=== PATIENT | male | born 1975 | race Caucasian/White ===

== ENCOUNTER 2017-06-10 15:00 | Emergency (ER) | payer OTHER ==
[2017-06-10 15:07] VITALS: BP 143/100; PULSE 98; RESP 18; TEMP 97.5
[2017-06-10] MEDS ORDERED: KETOROLAC 30 MG/ML 1 ML VIAL IM STA (15:16)
--- NOTE | 2017-06-10 15:21 | ED ---
General Adult HPI - General Chief complaint: Extremity Injury, Lower Stated complaint: Knee injury Time Seen by Provider: 06/10/17 15:10 Source: patient, RN notes reviewed Mode of arrival: ambulatory Limitations: no limitations - History of Present Illness Initial comments: 41-year-old male presents for evaluation of right knee pain. 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 Denies any other injury. The time of injury states his knees seem to twist and he heard several pops. He has been walking on this knee with significant pain and swelling over the past 6 hours. Any other injury, no chest pain or abdominal pain. No head or neck trauma. - Related Data Home Medications Medication Instructions Recorded Confirmed Ibuprofen [Motrin Ib] 400 mg PO Q6HR PRN 06/10/17 06/10/17 Previous Rx's Medication Instructions Recorded HYDROcodone/APAP 5-325MG [[place] 1 tab PO Q6HR PRN #12 tab 06/10/17 5-325] Ibuprofen [Motrin] 600 mg PO Q8HR PRN #24 tab 06/10/17 Allergies Allergy/AdvReac Type Severity Reaction Status Date / Time No Known Allergies Allergy Verified 06/10/17 15:12 Review of Systems ROS Statement: Those systems with pertinent positive or pertinent negative responses have been documented in the HPI. ROS Other: All systems not noted in ROS Statement are negative. Past Medical History Past Medical History: No Reported History History of Any Multi-Drug Resistant Organisms: None Reported Past Surgical History: No Surgical Hx Reported Past Psychological History: No Psychological Hx Reported Smoking Status: Never smoker Past Alcohol Use History: None Reported Past Drug Use History: None Reported General Exam Limitations: no limitations General appearance: alert, in no apparent distress Head exam: Present: atraumatic, normocephalic Eye exam: Present: normal appearance, PERRL, EOMI ENT exam: Present: normal exam Neck exam: Present: normal inspection. Absent: tenderness, meningismus Respiratory exam: Present: normal lung sounds bilaterally. Absent: respiratory distress, wheezes Cardiovascular Exam: Present: regular rate, normal rhythm GI/Abdominal exam: Present: soft. Absent: distended, tenderness Extremities exam: Present: joint swelling, other (Right lower extremity: DP and PT pulses intact, there is swelling in the right knee, with joint effusion. Knee overall appears stable. No calf swelling or tenderness.) Back exam: Present: normal inspection, full ROM. Absent: tenderness Neurological exam: Present: alert, oriented X3, CN II-XII intact. Absent: motor sensory deficit Psychiatric exam: Present: normal affect, normal mood Skin exam: Present: warm, dry, intact. Absent: cyanosis, diaphoretic Course Vital Signs 06/10/17 15:04 Temperature 97.5 F L Pulse Rate 98 Respiratory 18 Rate Blood Pressure 143/100 O2 Sat by Pulse 97 Oximetry Medical Decision Making - Medical Decision Making 41-year-old male with right knee injury and concern for ligamentous injury. On exam patient has significant joint swelling and effusion. X-rays obtained, this does show ossific density seen on the lateral projection adjacent to Hoffa' s fat pad concern for ACL rupture as well as suprapatellar joint effusion. Patient placed in knee immobilizer, given crutches, given orthopedic follow-up for evaluation and MRI. Patient will be nonweightbearing on right lower extremity until cleared by orthopedic surgery. Disposition Clinical Impression: Knee effusion, right, Knee strain, ACL (anterior cruciate ligament) rupture Disposition: HOME SELF-CARE Condition: Good Instructions: Knee Sprain (ED), Swollen Knee Joint (ED), ACL Injury (ED) Prescriptions: HYDROcodone/APAP 5-325MG [[place] 5-325] 1 tab PO Q6HR PRN #12 tab PRN Reason: Pain Ibuprofen [Motrin] 600 mg PO Q8HR PRN #24 tab PRN Reason: Pain Referrals: None,Stated [Primary Care Provider] - 1-2 days Bobo Bauer MD [Medical Doctor] - 1-2 days Time of Disposition: 15:40
--- NOTE | 2017-06-10 15:28 | XR ---
EXAMINATION TYPE: XR knee complete RT DATE OF EXAM: 06/10/2017 CLINICAL HISTORY: pain TECHNIQUE: Three views of the right knee are obtained. COMPARISON: None. FINDINGS: Curvilinear ossific density seen on the lateral projection on the adjacent to Hoffa's fat p ad. Avulsion fracture is not excluded. Correlate for possible ACL rupture. Small suprapatellar joint effusion noted. The tri-compartment joint spaces appear within normal limits. IMPRESSION: Curvilinear ossific density seen on the lateral projection on the adjacent to Hoffa's fa t pad. Avulsion fracture is not excluded. Correlate for possible ACL rupture. Small suprapatellar angélica nt effusion noted.
== END 2017-06-10 15:54 | disposition home or self-care (01) ==
LOC: EC 15:00
DX: S83.511A Sprain of anterior cruciate ligament of right knee, initial encounter (principal); S86.811A Strain of other muscle(s) and tendon(s) at lower leg level, right leg, initial encounter; M25.461 Effusion, right knee; Z53.29 Procedure and treatment not carried out because of patient's decision for other reasons; W01.0XXA Fall on same level from slipping, tripping and stumbling without subsequent striking against object, initial encounter; Y99.0 Civilian activity done for income or pay
CPT/HCPCS: 73562; 99283; L1830

== ENCOUNTER 2017-07-18 08:43 | Emergency (ER) | payer BC ==
[2017-07-18 08:49] VITALS: RESP 20; TEMP 98.3
[2017-07-18] MEDS ORDERED: SODIUM CHLORIDE 0.9% 1,000 ML IV ONE (09:05)
[2017-07-18] MEDS ORDERED: METOCLOPRAMIDE 5 MG/ML 2 ML VIAL IVP STA (09:05)
[2017-07-18] MEDS ORDERED: diphenhydrAMINE 50 MG/ML 1 ML VIAL IVP STA (09:05)
[2017-07-18] MEDS ORDERED: PANTOPRAZOLE 40 MG/10 ML VIAL IVP STA (09:05)
[2017-07-18 09:47] LABS: Appearance,Urine Clear (Clear); Basophils % (A) 0 %; Bilirubin,Urine Negative (Negative); Blood,Urine Negative (Negative); Color,Urine Yellow; Eosinophils # (A) 0.2 k/uL (0-0.7); Eosinophils % (A) 3 %; Glucose,Urine (UA) Negative (Negative); HCT 43.9 % (39.0-53.0); HGB 15.1 gm/dL (13.0-17.5); Ketones,Urine Negative (Negative); Leukocyte Esterase,Urine Negative (Negative); Lymphocytes # (A) 1.7 k/uL (1.0-4.8); Lymphocytes % (A) 18 %; MCH 29.5 pg (25.0-35.0); MCHC 34.4 g/dL (31.0-37.0); MCV 85.6 fL (80.0-100.0); Mean Platelet Volume 7.7; Monocytes # (A) 0.4 k/uL (0-1.0); Monocytes % (A) 4 %; Neutrophils # (A) 6.9 k/uL (1.3-7.7); Neutrophils % (A) 74 %; Nitrite,Urine Negative (Negative); Platelet Count 300 k/uL (150-450); Protein,Urine Negative (Negative); RBC 5.13 m/uL (4.30-5.90); RDW 12.7 % (11.5-15.5); Specific Gravity,Urine 1.018 (1.001-1.035); Urobilinogen,Urine <2.0 mg/dL (<2.0); WBC 9.3 k/uL (3.8-10.6)
[2017-07-18 09:56] LABS: Partial Thromboplastin Time 25.3 sec (22.0-30.0); Prothrombin Time 9.9 sec (9.0-12.0)
[2017-07-18 10:02] LABS: Albumin 4.5 g/dL (3.5-5.0); Anion Gap 16 mmol/L; Calcium 10.3 mg/dL (8.4-10.2); Carbon Dioxide 21 mmol/L (22-30); Chloride 106 mmol/L (98-107); Glucose 201 mg/dL (74-99); Sodium 143 mmol/L (137-145); Total Bilirubin 0.6 mg/dL (0.2-1.3); Total Protein 7.7 g/dL (6.3-8.2)
[2017-07-18 10:15] LABS: ALT 83 U/L (21-72); AST 47 U/L (17-59); Alkaline Phosphatase 113 U/L (38-126); Blood Urea Nitrogen 15 mg/dL (9-20)
--- NOTE | 2017-07-18 10:18 | CT ---
EXAMINATION TYPE: CT brain wo con DATE OF EXAM: 07/18/2017 COMPARISON: NONE HISTORY: Patient complains of headache today. CT DLP: 1121 mGycm. Automated Exposure Control for Dose Reduction was Utilized. TECHNIQUE: CT scan of the head is performed without contrast. FINDINGS: There is no acute intracranial hemorrhage, mass effect, or midline shift identified. The ventricles and sulci are within normal limits in size. There is prominence of the vertebral basilar artery. Could not exclude an aneurysm of the basilar art lily. Additionally there is an area of low attenuation within the white matter of the left occipital l obe near the occipital parietal junction. This is a nonspecific finding. IMPRESSION: 1. No acute intracranial hemorrhage or mass effect 2. Ectasia of the vertebrobasilar system aneurysm is not excluded recommend stat MRA/MRI. 3. Area of low attenuation involving the occipital white matter is nonspecific left. Could be seen wi th previous ischemia or demyelinating process. Recommend MRI of the brain.
[2017-07-18] MEDS ORDERED: RX INFO: IV CONTRAST WAS GIVEN 1 EACH MISC MISCELLANE PRN (10:26)
--- NOTE | 2017-07-18 10:58 | ED ---
Headache HPI - General Chief Complaint: Headache Stated Complaint: blood in urine/stool, headache Time Seen by Provider: 07/18/17 08:58 Source: patient, RN notes reviewed Mode of arrival: ambulatory Limitations: no limitations - History of Present Illness Initial Comments: This a 41-year-old male presents emergency Department chief complaint of headache. Patient states that he had a headache that started this morning. Patient's ever had a headache like this in the past. He states it's right- sided headache. He does admit to some nausea no vomiting no diarrhea no constipation. Patient is has no focal weakness no photosensitivity. Patient states that he took some Tylenol prior arrival for his headache. He states that his been taking ibuprofen [id number] lately because he had right knee surgery. Patient states that he did have a bowel movement other day which had blood in it. He states he was not exactly sure was rectal or in the urine. He states he has no dysuria no urinary frequency no abdominal pain. Patient states that he is concerned about the bleeding at this time. He states she's unconcerned about his headache. Patient reports no fever no chills no neck pain or neck stiffness. - Related Data Home Medications Medication Instructions Recorded Confirmed Ibuprofen [Motrin] 800 mg PO Q6H PRN 07/18/17 07/18/17 Previous Rx's Medication Instructions Recorded Butalb/APAP/Caff 50-325-40Mg 1 tab PO Q4H PRN #10 tablet 07/18/17 [Fioricet 50-325-40] Allergies Allergy/AdvReac Type Severity Reaction Status Date / Time No Known Allergies Allergy Verified 07/18/17 09:53 Review of Systems ROS Statement: Those systems with pertinent positive or pertinent negative responses have been documented in the HPI. ROS Other: All systems not noted in ROS Statement are negative. Past Medical History Past Medical History: No Reported History History of Any Multi-Drug Resistant Organisms: None Reported Past Surgical History: Orthopedic Surgery Additional Past Surgical History / Comment(s): right knee surgery Past Psychological History: No Psychological Hx Reported Smoking Status: Never smoker Past Alcohol Use History: None Reported Past Drug Use History: None Reported General Exam Limitations: no limitations General appearance: alert, in no apparent distress Head exam: Present: atraumatic, normocephalic, normal inspection Eye exam: Present: normal appearance, PERRL, EOMI. Absent: scleral icterus, conjunctival injection, periorbital swelling ENT exam: Present: normal exam, normal oropharynx, mucous membranes moist, TM's normal bilaterally Neck exam: Present: normal inspection, full ROM. Absent: tenderness, meningismus, lymphadenopathy Respiratory exam: Present: normal lung sounds bilaterally. Absent: respiratory distress, wheezes, rales, rhonchi, stridor Cardiovascular Exam: Present: regular rate, normal rhythm, normal heart sounds. Absent: systolic murmur, diastolic murmur, rubs, gallop, clicks GI/Abdominal exam: Present: soft, normal bowel sounds. Absent: distended, tenderness, guarding, rebound, rigid Extremities exam: Present: normal inspection, full ROM, normal capillary refill. Absent: tenderness, pedal edema, joint swelling, calf tenderness Neurological exam: Present: alert, oriented X3, CN II-XII intact, reflexes normal, other (Normal finger to nose, normal Romberg). Absent: motor sensory deficit Skin exam: Present: warm, dry, intact, normal color. Absent: rash Course Vital Signs 07/18/17 08:46 Temperature 98.3 F Pulse Rate 104 H Respiratory 20 Rate Blood Pressure 160/100 O2 Sat by Pulse 95 Oximetry - Reevaluation(s) Reevaluation #1: 07/18/17 11:47 Patient was updated on CT results. There is no evidence of aneurysm. He still has a mild headache and will be given Toradol, Norflex at this time. He's had no repeat bleeding. Patient states he has had hemorrhoids in the past most likely related to this. Patient hemoglobin is stable. Medical Decision Making - Medical Decision Making 41-year-old male presented for headache. Patient's having migraine headache. CT showed possible aneurysm though CT does not reveal any aneurysm. Patient is given a headache medications he feels slightly improved at this time he has a normal neuro exam. Patient had rectal bleeding other day but has resolved. Hemoglobin is stable. Patient be discharged is advised follow-up with primary care physician been related to his issues including headaches, bleeding and hyperglycemia. - Lab Data Result diagrams: 07/18/17 09:25 07/18/17 09:25 Lab Results 07/18/17 07/18/17 07/18/17 Range/Units 09:25 09:25 09:25 WBC 9.3 (3.8-10.6) k/uL RBC 5.13 (4.30-5.90) m/uL Hgb 15.1 (13.0-17.5) gm/dL Hct 43.9 (39.0-53.0) % MCV 85.6 (80.0-100.0) fL MCH 29.5 (25.0-35.0) pg MCHC 34.4 (31.0-37.0) g/dL RDW 12.7 (11.5-15.5) % Plt Count 300 (150-450) k/uL Neutrophils % 74 % Lymphocytes % 18 % Monocytes % 4 % Eosinophils % 3 % Basophils % 0 % Neutrophils # 6.9 (1.3-7.7) k/uL Lymphocytes # 1.7 (1.0-4.8) k/uL Monocytes # 0.4 (0-1.0) k/uL Eosinophils # 0.2 (0-0.7) k/uL Basophils # 0.0 (0-0.2) k/uL PT 9.9 (9.0-12.0) sec INR 1.0 (<1.2) APTT 25.3 (22.0-30.0) sec Sodium 143 (137-145) mmol/L Potassium 5.0 (3.5-5.1) mmol/L Chloride 106 (98-107) mmol/L Carbon Dioxide 21 L (22-30) mmol/L Anion Gap 16 mmol/L BUN 15 (9-20) mg/dL Creatinine 0.57 L (0.66-1.25) mg/dL Est GFR (CKD-EPI)AfAm >90 (>60 ml/min/1.73 sqM) Est GFR (CKD-EPI)NonAf >90 (>60 ml/min/1.73 sqM) Glucose 201 H (74-99) mg/dL Calcium 10.3 H (8.4-10.2) mg/dL Total Bilirubin 0.6 (0.2-1.3) mg/dL AST 47 (17-59) U/L ALT 83 H (21-72) U/L Alkaline Phosphatase 113 (38-126) U/L Total Protein 7.7 (6.3-8.2) g/dL Albumin 4.5 (3.5-5.0) g/dL Urine Color Urine Appearance (Clear) Urine pH (5.0-8.0) Ur Specific [place] (1.001-1.035) Urine Protein (Negative) Urine Glucose (UA) (Negative) Urine Ketones (Negative) Urine Blood (Negative) Urine Nitrite (Negative) Urine Bilirubin (Negative) Urine Urobilinogen (<2.0) mg/dL Ur Leukocyte Esterase (Negative) 07/18/17 Range/Units 09:25 WBC (3.8-10.6) k/uL RBC (4.30-5.90) m/uL Hgb (13.0-17.5) gm/dL Hct (39.0-53.0) % MCV (80.0-100.0) fL MCH (25.0-35.0) pg MCHC (31.0-37.0) g/dL RDW (11.5-15.5) % Plt Count (150-450) k/uL Neutrophils % % Lymphocytes % % Monocytes % % Eosinophils % % Basophils % % Neutrophils # (1.3-7.7) k/uL Lymphocytes # (1.0-4.8) k/uL Monocytes # (0-1.0) k/uL Eosinophils # (0-0.7) k/uL Basophils # (0-0.2) k/uL PT (9.0-12.0) sec INR (<1.2) APTT (22.0-30.0) sec Sodium (137-145) mmol/L Potassium (3.5-5.1) mmol/L Chloride (98-107) mmol/L Carbon Dioxide (22-30) mmol/L Anion Gap mmol/L BUN (9-20) mg/dL Creatinine (0.66-1.25) mg/dL Est GFR (CKD-EPI)AfAm (>60 ml/min/1.73 sqM) Est GFR (CKD-EPI)NonAf (>60 ml/min/1.73 sqM) Glucose (74-99) mg/dL Calcium (8.4-10.2) mg/dL Total Bilirubin (0.2-1.3) mg/dL AST (17-59) U/L ALT (21-72) U/L Alkaline Phosphatase (38-126) U/L Total Protein (6.3-8.2) g/dL Albumin (3.5-5.0) g/dL Urine Color Yellow Urine Appearance Clear (Clear) Urine pH 5.0 (5.0-8.0) Ur Specific [place] 1.018 (1.001-1.035) Urine Protein Negative (Negative) Urine Glucose (UA) Negative (Negative) Urine Ketones Negative (Negative) Urine Blood Negative (Negative) Urine Nitrite Negative (Negative) Urine Bilirubin Negative (Negative) Urine Urobilinogen <2.0 (<2.0) mg/dL Ur Leukocyte Esterase Negative (Negative) Disposition Clinical Impression: Hyperglycemia, Migraine, Hypertension Disposition: HOME SELF-CARE Condition: Stable Instructions: Acute Headache (ED) Additional Instructions: Please return to the Emergency Department if symptoms worsen or any other concerns. Prescriptions: Butalb/APAP/Caff 50-325-40Mg [Fioricet 50-325-40] 1 tab PO Q4H PRN #10 tablet PRN Reason: Headache Is patient prescribed a controlled substance at d/c from ED?: No Referrals: Leona Holbrook MD [STAFF PHYSICIAN] - 1-2 days Time of Disposition: 11:49
--- NOTE | 2017-07-18 11:33 | CT ---
EXAMINATION TYPE: CT angio head neck DATE OF EXAM: 07/18/2017 HISTORY: Patient complains of headache. Abnormal prior brain CT. COMPARISON: CT brain of the same date CT DLP: 761.5 mGycm. Automated Exposure Control for Dose Reduction was Utilized. TECHNIQUE: CTA scan of the neck is performed with IV Contrast, patient injected with 65 mL of Isovue 370, axial images are obtained, coronal and sagittal reformatted images are reviewed. Three-D recons tructed images are created on an independent workstation and reviewed. FINDINGS: Carotid/Vascular Structures: There is a conventional branch pattern of the aortic arch. Great vessels are unremarkable. The common carotid arteries are patent as are the carotid bulbs and internal carot id arteries. No hemodynamically significant stenosis. The left vertebral artery is dominant. Vertebra l arteries are patent. No dissection is seen. Intracranial vasculature is also patent and [place] is intact although the right posterior communicating artery is diminutive. No evidence of intra cranial aneurysm or arterial venous malformation. Incidentally the posterior cerebral artery has an a nomalous origin from the left MCA. Other: Paranasal sinuses are well aerated. Osseous structures are intact. Scattered areas of atelecta sis are seen within the lung apices and there is also respiratory artifact. Subcentimeter left thyroi d gland nodule is noted. No gross evidence of adenopathy within the head or neck. Visualized portions of the brain are better described on the CT brain dictation of the same date. IMPRESSION: 1. No evidence of hemodynamically significant stenosis in the arterial vasculature of the head or nec k, no dissection, and no aneurysmal outpouching. 2. Incidentally noted subcentimeter left thyroid nodule.
[2017-07-18] MEDS ORDERED: ORPHENADRINE 30 MG/ML 2 ML VIAL IVP STA (11:42)
[2017-07-18] MEDS ORDERED: KETOROLAC 30 MG/ML 1 ML VIAL IVP STA (11:42)
[2017-07-18 11:54] VITALS: BP 128/87; PULSE 94
== END 2017-07-18 12:29 | disposition home or self-care (01) ==
LOC: EC 08:43
DX: G43.909 Migraine, unspecified, not intractable, without status migrainosus (principal); I10 Essential (primary) hypertension; R73.9 Hyperglycemia, unspecified
CPT/HCPCS: 99284 ×2; 96374 ×2; 96375 ×5; 96361 ×2; 36415; 80053; 85025; 85610; 85730; 81003; 70496; 70450; 70498; J1200; J2360; J2765; J1885; C9113; Q9967

== ENCOUNTER 2020-07-21 10:57 | Emergency (ER) | payer BC ==
[2020-07-21 11:06] VITALS: RESP 18
[2020-07-21] MEDS ORDERED: SODIUM CHLORIDE 0.9% 1,000 ML IV STA (11:36)
[2020-07-21 12:01] LABS: Basophils % (A) 1 %; Eosinophils # (A) 0.1 k/uL (0-0.7); Eosinophils % (A) 2 %; HCT 42.3 % (39.0-53.0); HGB 14.9 gm/dL (13.0-17.5); Lymphocytes % (A) 20 %; MCH 29.8 pg (25.0-35.0); MCHC 35.2 g/dL (31.0-37.0); MCV 84.7 fL (80.0-100.0); Mean Platelet Volume 7.6; Monocytes # (A) 0.3 k/uL (0-1.0); Monocytes % (A) 6 %; Neutrophils # (A) 3.4 k/uL (1.3-7.7); Neutrophils % (A) 70 %; Platelet Count 217 k/uL (150-450); RBC 4.99 m/uL (4.30-5.90); RDW 12.4 % (11.5-15.5); WBC 4.9 k/uL (3.8-10.6)
--- NOTE | 2020-07-21 12:03 | ED ---
General Adult HPI - General Chief complaint: Upper Respiratory Infection Stated complaint: Covid+, SOB Time Seen by Provider: 07/21/20 11:14 Source: patient Mode of arrival: ambulatory Limitations: no limitations - History of Present Illness Initial comments: 44-year-old male presents to emergency Department with a chief complaint of shortness of breath. States he was diagnosed with Covid 7 days ago and has been experiencing symptoms since. He reports increased exertional dyspnea with occasional midsternal chest tightness/pain. Patient reports generalized fatigue and myalgias. He also reports an unproductive cough with occasional rhinorrhea and a sore throat but no otalgia. Denies any nausea or vomiting or diarrhea. He denies any abdominal pain. Denies taking medication to alleviate the symptoms. Not a smoker. - Related Data Home Medications Medication Instructions Recorded Confirmed No Known Home Medications 07/21/20 07/21/20 Allergies Allergy/AdvReac Type Severity Reaction Status Date / Time No Known Allergies Allergy Verified 07/21/20 12:12 Review of Systems ROS Statement: Those systems with pertinent positive or pertinent negative responses have been documented in the HPI. ROS Other: All systems not noted in ROS Statement are negative. Past Medical History Past Medical History: No Reported History History of Any Multi-Drug Resistant Organisms: None Reported Past Surgical History: Orthopedic Surgery Additional Past Surgical History / Comment(s): right knee surgery Past Psychological History: No Psychological Hx Reported Smoking Status: Never smoker Past Alcohol Use History: None Reported Past Drug Use History: None Reported General Exam Limitations: no limitations General appearance: alert, in no apparent distress Head exam: Present: atraumatic, normocephalic, normal inspection Eye exam: Present: normal appearance, PERRL, EOMI Pupils: Present: normal accommodation ENT exam: Present: normal exam, normal oropharynx, mucous membranes moist, TM's normal bilaterally, normal external ear exam Neck exam: Present: normal inspection, full ROM. Absent: tenderness, lymph adenopathy Respiratory exam: Present: normal lung sounds bilaterally. Absent: respiratory distress, wheezes, rales, rhonchi, stridor, chest wall tenderness, accessory muscle use Cardiovascular Exam: Present: regular rate, normal rhythm, normal heart sounds Extremities exam: Present: normal inspection, full ROM, normal capillary refill. Absent: tenderness, pedal edema, joint swelling Back exam: Present: normal inspection, full ROM, tenderness, paraspinal tenderness (Mild lumbosacral paraspinal tenderness). Absent: CVA tenderness (R), CVA tenderness (L) Neurological exam: Present: alert, oriented X3 Psychiatric exam: Present: normal affect, normal mood Skin exam: Present: warm, dry, intact, normal color Course Vital Signs 07/21/20 07/21/20 07/21/20 11:02 11:51 12:05 Temperature 97.9 F Pulse Rate 99 90 100 Respiratory 18 18 18 Rate Blood Pressure 140/94 119/77 122/85 O2 Sat by Pulse 96 96 95 Oximetry 07/21/20 07/21/20 07/21/20 12:44 13:37 14:28 Temperature 99.1 F 99.2 F Pulse Rate 94 96 Respiratory 18 18 18 Rate Blood Pressure 123/79 122/82 O2 Sat by Pulse 96 94 L Oximetry 07/21/20 07/21/20 07/21/20 14:53 15:24 15:28 Temperature 98.6 F 98.6 F Pulse Rate 99 99 Respiratory 18 18 Rate Blood Pressure 118/87 118/87 O2 Sat by Pulse 95 95 Oximetry EKG Findings - EKG Comments: EKG Findings:: Sinus rhythm. Ventricular rate 90, TN 200, QRS 116, QTc 469. Medical Decision Making - Medical Decision Making 44-year-old male presents to emergency Department with a chief complaint of shortness of breath. On physical examination, patient appears to be slightly short of breath but he is not in significant respiratory distress. Vital signs are within normal limits. Patient was given IV fluids and a Tylenol in the ED. Coags within normal limits. Negative d-dimer. Chest x-ray reveals bilateral patchy infiltrates likely suggesting Covid pneumonia. Patient fits criteria for monoclonal antibody. He was given the effusion observed for one hour afterwards . Patient reports improvement in symptoms and feels comfortable going home. Covid protocol discussed. Return parameters discussed the patient is an attending ago. Case discussed with Dr. Louise. - Lab Data Result diagrams: 07/21/20 11:42 07/21/20 11:42 Lab Results 07/21/20 07/21/20 07/21/20 Range/Units 11:42 11:42 11:42 WBC 4.9 (3.8-10.6) k/uL RBC 4.99 (4.30-5.90) m/uL Hgb 14.9 (13.0-17.5) gm/dL Hct 42.3 (39.0-53.0) % MCV 84.7 (80.0-100.0) fL MCH 29.8 (25.0-35.0) pg MCHC 35.2 (31.0-37.0) g/dL RDW 12.4 (11.5-15.5) % Plt Count 217 (150-450) k/uL MPV 7.6 Neutrophils % 70 % Lymphocytes % 20 % Monocytes % 6 % Eosinophils % 2 % Basophils % 1 % Neutrophils # 3.4 (1.3-7.7) k/uL Lymphocytes # 1.0 (1.0-4.8) k/uL Monocytes # 0.3 (0-1.0) k/uL Eosinophils # 0.1 (0-0.7) k/uL Basophils # 0.0 (0-0.2) k/uL PT 10.8 (9.0-12.0) sec INR 1.0 (<1.2) APTT 24.6 (22.0-30.0) sec D-Dimer 0.54 (<0.60) mg/L FEU Sodium 138 (137-145) mmol/L Potassium 3.5 (3.5-5.1) mmol/L Chloride 102 (98-107) mmol/L Carbon Dioxide 26 (22-30) mmol/L Anion Gap 10 mmol/L BUN 8 L (9-20) mg/dL Creatinine 0.47 L (0.66-1.25) mg/dL Est GFR (CKD-EPI)AfAm >90 (>60 ml/min/1.73 sqM) Est GFR (CKD-EPI)NonAf >90 (>60 ml/min/1.73 sqM) Glucose 251 H (74-99) mg/dL Calcium 9.0 (8.4-10.2) mg/dL Total Bilirubin 1.6 H (0.2-1.3) mg/dL AST 54 (17-59) U/L ALT 59 H (4-49) U/L Alkaline Phosphatase 91 (38-126) U/L Troponin I (0.000-0.034) ng/mL Total Protein 7.1 (6.3-8.2) g/dL Albumin 4.0 (3.5-5.0) g/dL 07/21/20 Range/Units 11:42 WBC (3.8-10.6) k/uL RBC (4.30-5.90) m/uL Hgb (13.0-17.5) gm/dL Hct (39.0-53.0) % MCV (80.0-100.0) fL MCH (25.0-35.0) pg MCHC (31.0-37.0) g/dL RDW (11.5-15.5) % Plt Count (150-450) k/uL MPV Neutrophils % % Lymphocytes % % Monocytes % % Eosinophils % % Basophils % % Neutrophils # (1.3-7.7) k/uL Lymphocytes # (1.0-4.8) k/uL Monocytes # (0-1.0) k/uL Eosinophils # (0-0.7) k/uL Basophils # (0-0.2) k/uL PT (9.0-12.0) sec INR (<1.2) APTT (22.0-30.0) sec D-Dimer (<0.60) mg/L FEU Sodium (137-145) mmol/L Potassium (3.5-5.1) mmol/L Chloride (98-107) mmol/L Carbon Dioxide (22-30) mmol/L Anion Gap mmol/L BUN (9-20) mg/dL Creatinine (0.66-1.25) mg/dL Est GFR (CKD-EPI)AfAm (>60 ml/min/1.73 sqM) Est GFR (CKD-EPI)NonAf (>60 ml/min/1.73 sqM) Glucose (74-99) mg/dL Calcium (8.4-10.2) mg/dL Total Bilirubin (0.2-1.3) mg/dL AST (17-59) U/L ALT (4-49) U/L Alkaline Phosphatase (38-126) U/L Troponin I <0.012 (0.000-0.034) ng/mL Total Protein (6.3-8.2) g/dL Albumin (3.5-5.0) g/dL Disposition Clinical Impression: Pneumonia due to COVID-19 virus Disposition: HOME SELF-CARE Condition: Stable Instructions (If sedation given, give patient instructions): Coronavirus Disease 2019 (COVID-19) Additional Instructions: Please return to the Emergency Department if symptoms worsen or any other concerns. Is patient prescribed a controlled substance at d/c from ED?: No Referrals: None,Stated [Primary Care Provider] - 1-2 days Time of Disposition: 14:05
[2020-07-21 12:13] LABS: ALT 59 U/L (4-49); AST 54 U/L (17-59); African American GFR (CKD) >90 (>60 ml/min/1.73 sqM); Alkaline Phosphatase 91 U/L (38-126); Anion Gap 10 mmol/L; Blood Urea Nitrogen 8 mg/dL (9-20); Carbon Dioxide 26 mmol/L (22-30); Chloride 102 mmol/L (98-107); Glucose 251 mg/dL (74-99); Non-African American GFR(CKD) >90 (>60 ml/min/1.73 sqM); Potassium 3.5 mmol/L (3.5-5.1); Sodium 138 mmol/L (137-145); Total Bilirubin 1.6 mg/dL (0.2-1.3); Total Protein 7.1 g/dL (6.3-8.2)
--- NOTE | 2020-07-21 12:14 | XR ---
EXAMINATION TYPE: XR chest 1V portable DATE OF EXAM: 07/21/2020 COMPARISON: NONE HISTORY: Cough TECHNIQUE: Single frontal view of the chest is obtained. FINDINGS: Patchy bilateral interstitial infiltrates. Heart size prominent. No pleural effusion or pn eumothorax. Osseous structures intact. IMPRESSION: Patchy bilateral infiltrate correlate for pneumonia.
[2020-07-21 12:25] LABS: D-Dimer 0.54 mg/L FEU (<0.60); Partial Thromboplastin Time 24.6 sec (22.0-30.0); Prothrombin Time 10.8 sec (9.0-12.0)
[2020-07-21] MEDS ORDERED: BAMLANIVIMAB (EUA) 700 MG, ETESEVIMAB (EUA) 1,400 MG in SODIUM CHLORIDE 0.9% 50 ML IVPB ONE (13:30)
[2020-07-21] MEDS ORDERED: SODIUM CHLORIDE 0.9% 50 ML IVPB ONE (13:30)
[2020-07-21] MEDS ORDERED: ACETAMINOPHEN TAB 325 MG TAB PO STA (13:51)
[2020-07-21 14:53] VITALS: TEMP 98.6
[2020-07-21 15:24] VITALS: BP 118/87; PULSE 99
== END 2020-07-21 15:29 | disposition home or self-care (01) ==
LOC: EC 10:57
DX: U07.1 COVID-19 (principal); J12.82 Pneumonia due to coronavirus disease 2019
CPT/HCPCS: 36415; 93005; 85379; 80053; 84484; 85025; 85610; 85730; 71045; 99285; 96360; 96361; Q0245

== ENCOUNTER 2023-02-06 23:13 | Emergency (ER) | payer BC, OTHER ==
--- NOTE | 2023-02-07 00:26 | XR ---
EXAM: XR Chest, 2 Views CLINICAL HISTORY: Cough congestion TECHNIQUE: Frontal and lateral views of the chest. COMPARISON: July 21, 2020 FINDINGS: Lungs: Unremarkable. No infiltration, atelectasis or mass density. Pleural space: Unremarkable. No pneumothorax. No pleural fluid. Heart: Unremarkable. No cardiomegaly. Mediastinum: Unremarkable. Normal mediastinal contour. Bones/joints: Unremarkable. No acute abnormalities. IMPRESSION: No acute findings in the chest.
[2023-02-07 00:31] VITALS: RESP 18
--- NOTE | 2023-02-07 00:48 | ED ---
General Adult HPI - General Chief complaint: Upper Respiratory Infection Stated complaint: Cough,Congestion Source: patient Mode of arrival: ambulatory Limitations: no limitations - History of Present Illness Initial comments: 47-year-old male presenting to the ED with a chief complaint of upper respiratory symptoms. Patient states for the past 3 weeks has had upper respiratory symptoms. Since onset, patient states symptoms continuous prompting presentation to the ED For further evaluation. States he is having cough, fatigue, chills, ear pain, headache, sore throat. States over the past few days he is now starting to have pain when he coughs. Patient at rest otherwise denies chest pain. No shortness of breath. No other complaints. - Related Data Previous Rx's Medication Instructions Recorded Amoxic-Pot Clav 875-125Mg 1 tab PO Q12HR 7 Days #14 tab 02/07/23 [Augmentin 875-125] Allergies Allergy/AdvReac Type Severity Reaction Status Date / Time No Known Allergies Allergy Verified 02/06/23 23:57 Review of Systems ROS Statement: Those systems with pertinent positive or pertinent negative responses have been documented in the HPI. ROS Other: All systems not noted in ROS Statement are negative. Past Medical History Past Medical History: No Reported History History of Any Multi-Drug Resistant Organisms: None Reported Past Surgical History: Orthopedic Surgery Additional Past Surgical History / Comment(s): right knee surgery Past Psychological History: No Psychological Hx Reported Smoking Status: Never smoker Past Alcohol Use History: None Reported Past Drug Use History: None Reported General Exam Limitations: no limitations General appearance: alert Eye exam: Present: normal appearance ENT exam: Present: mucous membranes moist, normal external ear exam, other (Right maxillary sinus TTP) Respiratory exam: Present: normal lung sounds bilaterally Cardiovascular Exam: Present: regular rate GI/Abdominal exam: Present: soft Extremities exam: Present: normal inspection Back exam: Present: normal inspection Neurological exam: Present: alert Skin exam: Present: warm, dry Course Vital Signs 02/06/23 23:57 Temperature 98.2 F Pulse Rate 96 Respiratory 18 Rate Blood Pressure 178/99 O2 Sat by Pulse 96 Oximetry Medical Decision Making - Medical Decision Making Was pt. sent in by a medical professional or institution (, PA, MANAGEMENT TRAINEE MARKETING, urgent care, hospital, or group home...) When possible be specific @ -No Did you speak to anyone other than the patient for history (EMS, parent, family, police, friend...)? What history was obtained from this source @ -No Did you review nursing and triage notes (agree or disagree)? Why? @ -I reviewed and agree with nursing and triage notes Were old charts reviewed (outside hosp., previous admission, EMS record, old EKG, old radiological studies, urgent care reports/EKG's, group home records)? Report findings @ -No old charts were reviewed Differential Diagnosis (chest pain, altered mental status, abdominal pain women, abdominal pain men, vaginal bleeding, weakness, fever, dyspnea, syncope, headache, dizziness, GI bleed, back pain, seizure, CVA, palpatations, mental health, musculoskeletal)? @ -Pneumonia, upper respiratory infection, sinusitis. This is not meant to be an all-inclusive list. EKG interpreted by me (3pts min.). @ -None X-rays interpreted by me (1pt min.). @ -Chest x-ray interpreted by me showed no evidence of pneumonia or other acute finding. CT interpreted by me (1pt min.). @ -None done U/S interpreted by me (1pt. min.). @ -None done What testing was considered but not performed or refused? (CT, X-rays, U/S, labs)? Why? @ -None What meds were considered but not given or refused? Why? @ -None Did you discuss the management of the patient with other professionals (professionals i.e. , PA, MANAGEMENT TRAINEE MARKETING, lab, RT, psych nurse, health and social care teacher, derrick boat leverman, teacher, consumer loan officer, business case analyst)? Give summary @ -No Was smoking cessation discussed for >3mins.? @ -No Was critical care preformed (if so, how long)? @ -No Were there social determinants of health that impacted care today? How? (Homelessness, low income, unemployed, alcoholism, drug addiction, transportation, low edu. Level, literacy, decrease access to med. care, shelter, rehab)? @ -No Was there de-escalation of care discussed even if they declined (Discuss DNR or withdrawal of care, Hospice)? DNR status @ -No What co-morbidities impacted this encounter? (DM, HTN, Smoking, COPD, CAD, Cancer, CVA, ARF, Chemo, Hep., AIDS, mental health diagnosis, sleep apnea, morbid obesity)? @ -None Was patient admitted / discharged? Hospital course, mention meds given and route, prescriptions, significant lab abnormalities, going to OR and other pertinent info. @ -Discharge 47-year-old male presenting to the ED with upper respiratory symptoms for the past 3 weeks. Symptoms consistent with sinusitis. With symptoms ongoing for greater then 2 weeks patient started on antibiotics. Provided dose of Augmentin here and discharged home with prescription for Augmentin. Discharged home in stable condition. At this time, vital signs stable afebrile. Discussed return precautions patient verbalizes agreement. Undiagnosed new problem with uncertain prognosis? @ -No Drug Therapy requiring intensive monitoring for toxicity (Heparin, Nitro, Insulin, Cardizem)? @ -No Were any procedures done? @ -No Diagnosis/symptom? @ -Sinusitis Acute, or Chronic, or Acute on Chronic? @ -Acute Uncomplicated (without systemic symptoms) or Complicated (systemic symptoms)? @ -Uncomplicated Side effects of treatment? @ -No Exacerbation, Progression, or Severe Exacerbation? @ -No Poses a threat to life or bodily function? How? (Chest pain, [place], [place], pneumonia, PE, COPD, DKA, ARF, appy, cholecystitis, CVA, Diverticulitis, Homicidal, Suicidal, threat to staff... and all critical care pts) @ -No - Lab Data Lab Results 02/07/23 Range/Units 00:00 Influenza Type A (PCR) Not Detected (Not Detectd) Influenza Type B (PCR) Not Detected (Not Detectd) RSV (PCR) Not Detected (Not Detectd) SARS-CoV-2 (PCR) Not Detected (Not Detectd) Disposition Clinical Impression: Sinusitis Disposition: HOME SELF-CARE Condition: Good Instructions (If sedation given, give patient instructions): Sinusitis (ED) Additional Instructions: Please return to the Emergency Department if symptoms worsen or any other concerns. Please follow-up with your primary care provider. Prescriptions: Amoxic-Pot Clav 875-125Mg [Augmentin 875-125] 1 tab PO Q12HR 7 Days #14 tab Is patient prescribed a controlled substance at d/c from ED?: No Referrals: None,Stated [Primary Care Provider] - 1-2 days Time of Disposition: 01:35
[2023-02-07] MEDS ORDERED: AMOXIC-POT CLAV 875-125MG 1 EACH TAB PO STA (01:28)
[2023-02-07 02:03] VITALS: BP 123/76; PULSE 78; TEMP 98.3
== END 2023-02-07 01:47 | disposition home or self-care (01) ==
LOC: EC 23:13
DX: J32.9 Chronic sinusitis, unspecified (principal); Z20.822 Contact with and (suspected) exposure to COVID-19
CPT/HCPCS: 71046; 87636; 99283

== ENCOUNTER 2023-08-07 08:01 | Emergency (ER) | payer OTHER ==
[2023-08-07] MEDS: IBUPROFEN 600 MG TAB PO STA (08:59)
--- NOTE | 2023-08-07 09:36 | ED ---
ENT HPI - General Chief complaint: ENT Stated complaint: ear pain Source: patient Mode of arrival: ambulatory Limitations: no limitations - History of Present Illness Initial comments: 48-year-old man presents emergency department reporting bilateral ear pain. States he has significant nasal congestion, ear pain and sore throat. Symptoms started last night. He states he feels chills but had no recorded fevers. Patient admits to generalized body aches. No sick contacts with similar symptoms. He denies nausea or vomiting. No abdominal pain. No changes in his bowel or bladder habits. Denies cough. He did take a Sudafed at home to help his symptoms just before coming in. No other alleviating, precipitating or modifying factors - Related Data Previous Rx's Medication Instructions Recorded Amoxic-Pot Clav 875-125Mg 1 tab PO Q12HR 7 Days #14 tab 02/07/23 [Augmentin 875-125] Amoxicillin 500 mg PO BID #16 capsule 08/07/23 Allergies Allergy/AdvReac Type Severity Reaction Status Date / Time No Known Allergies Allergy Verified 02/06/23 23:57 Review of Systems ROS Statement: Those systems with pertinent positive or pertinent negative responses have been documented in the HPI. ROS Other: All systems not noted in ROS Statement are negative. Past Medical History Past Medical History: No Reported History History of Any Multi-Drug Resistant Organisms: None Reported Past Surgical History: Orthopedic Surgery Additional Past Surgical History / Comment(s): right knee surgery Past Psychological History: No Psychological Hx Reported Smoking Status: Never smoker Past Alcohol Use History: None Reported Past Drug Use History: None Reported General Exam Limitations: no limitations General appearance: alert, in no apparent distress Head exam: Present: atraumatic, normocephalic, normal inspection Eye exam: Present: normal appearance, PERRL, EOMI. Absent: scleral icterus, conjunctival injection, periorbital swelling ENT exam: Present: mucous membranes moist, other (Tonsils are erythematous with white plaquing. No peritonsillar abscess) Neck exam: Present: normal inspection. Absent: tenderness, meningismus, lymphadenopathy Respiratory exam: Present: normal lung sounds bilaterally. Absent: respiratory distress, wheezes, rales, rhonchi, stridor Cardiovascular Exam: Present: regular rate, normal rhythm, normal heart sounds. Absent: systolic murmur, diastolic murmur, rubs, gallop, clicks GI/Abdominal exam: Present: soft, normal bowel sounds. Absent: distended, tenderness, guarding, rebound, rigid Extremities exam: Present: normal inspection, full ROM, normal capillary refill. Absent: tenderness, pedal edema, joint swelling, calf tenderness Back exam: Present: normal inspection Neurological exam: Present: alert, oriented X3, CN II-XII intact Psychiatric exam: Present: normal affect, normal mood Skin exam: Present: warm, dry, intact, normal color. Absent: rash Course Vital Signs 08/07/23 08/07/23 08/07/23 08:04 08:17 08:30 Temperature 98.2 F 99.1 F Pulse Rate 107 H 105 H 105 H Respiratory 18 14 14 Rate Blood Pressure 175/119 163/112 157/116 O2 Sat by Pulse 96 97 97 Oximetry 08/07/23 08/07/23 08/07/23 09:00 09:25 09:38 Temperature 99.8 F H Pulse Rate 105 H 101 H Respiratory 17 17 Rate Blood Pressure 155/118 163/113 O2 Sat by Pulse 95 95 Oximetry 08/07/23 10:15 Temperature 98.5 F Pulse Rate 98 Respiratory 14 Rate Blood Pressure 157/116 O2 Sat by Pulse 98 Oximetry Medical Decision Making - Medical Decision Making Was pt. sent in by a medical professional or institution (, PA, INDUSTRIAL ORGANIZATIONAL PSYCHOLOGIST, urgent care, hospital, or penitentiary...) When possible be specific @ -No Did you speak to anyone other than the patient for history (EMS, parent, family, police, friend...)? What history was obtained from this source @ -No Did you review nursing and triage notes (agree or disagree)? Why? @ -I reviewed and agree with nursing and triage notes Were old charts reviewed (outside hosp., previous admission, EMS record, old EKG, old radiological studies, urgent care reports/EKG's, penitentiary records)? Report findings @ -No old charts were reviewed Differential Diagnosis (chest pain, altered mental status, abdominal pain women, abdominal pain men, vaginal bleeding, weakness, fever, dyspnea, syncope, headache, dizziness, GI bleed, back pain, seizure, CVA, palpatations, mental health, musculoskeletal)? @ -Differential Fever: Pneumonia, viral URI, endocarditis, myocarditis, pericarditis, otitis, sinusitis, peritonsillar Abscess, retropharyngeal Abscess, epiglottitis, peritonitis, appendicitis, Le cystitis, diverticulitis, hepatitis, colitis, UTI, PID, TOA, pyelonephritis, prostatitis, epididymitis, meningitis, e ncephalitis, pulmonary embolism, CVA, thyroid storm, pancreatitis, adrenal crisis, cavernous sinus thrombosis, this is not meant to be an all-inclusive list. EKG interpreted by me (3pts min.). @ -Not done X-rays interpreted by me (1pt min.). @ -None done CT interpreted by me (1pt min.). @ -None done U/S interpreted by me (1pt. min.). @ -None done What testing was considered but not performed or refused? (CT, X-rays, U/S, labs)? Why? @ -None What meds were considered but not given or refused? Why? @ -None Did you discuss the management of the patient with other professionals (professionals i.e. , PA, INDUSTRIAL ORGANIZATIONAL PSYCHOLOGIST, lab, RT, psych nurse, social work lecturer, surgical garment assembler, teacher, real estate officer, nurse case management)? Give summary @ -No Was smoking cessation discussed for >3mins.? @ -No Was critical care preformed (if so, how long)? @ -No Were there social determinants of health that impacted care today? How? (Homelessness, low income, unemployed, alcoholism, drug addiction, transportation, low edu. Level, literacy, decrease access to med. care, snf, rehab)? @ -No Was there de-escalation of care discussed even if they declined (Discuss DNR or withdrawal of care, Hospice)? DNR status @ -No What co-morbidities impacted this encounter? (DM, HTN, Smoking, COPD, CAD, Cancer, CVA, ARF, Chemo, Hep., AIDS, mental health diagnosis, sleep apnea, morbid obesity)? @ -None Was patient admitted / discharged? Hospital course, mention meds given and route, prescriptions, significant lab abnormalities, going to OR and other pertinent info. @ -Upon arrival patient seen in room room 8. Thorough history and physical exam was performed. Patient is swabbed for influenza, COVID, RSV and strep. He is given Motrin for pain and fever. Strep is positive. Patient started on amoxicillin. Patient will be given a prescription for the neck several days. He is given a work note. He must follow-up with his primary care doctor for reevaluation return for any new or worsening symptoms. Patient blood pressure is high in the emergency department. He denies history of high blood pressure. May be due to Sudafed. Instructed to stop taking Sudafed and keep a log of his blood pressures. Undiagnosed new problem with uncertain prognosis? @ -No Drug Therapy requiring intensive monitoring for toxicity (Heparin, Nitro, Insulin, Cardizem)? @ -No Were any procedures done? @ -No Diagnosis/symptom? @ -Acute myalgias, acute bilateral ear pain, acute strep pharyngitis Acute, or Chronic, or Acute on Chronic? @ -Acute Uncomplicated (without systemic symptoms) or Complicated (systemic symptoms)? @ -Complicated Side effects of treatment? @ -No Exacerbation, Progression, or Severe Exacerbation? @ -No Poses a threat to life or bodily function? How? (Chest pain, [place], [place], pneumonia, PE, COPD, DKA, ARF, appy, cholecystitis, CVA, Diverticulitis, Homicidal, Suicidal, threat to staff... and all critical care pts) @ -No - Lab Data Lab Results 08/07/23 08/07/23 Range/Units 08:55 08:55 Influenza Type A (PCR) Not Detected (Not Detectd) Influenza Type B (PCR) Not Detected (Not Detectd) RSV (PCR) Not Detected (Not Detectd) SARS-CoV-2 (PCR) Not Detected (Not Detectd) Group A Strep (PCR) DETECTED A (Not Detectd) Disposition Clinical Impression: Strep pharyngitis, Tachycardia, Ear pain Disposition: HOME SELF-CARE Condition: Stable Instructions (If sedation given, give patient instructions): Strep Throat (ED) Additional Instructions: Alternate taking 3 tablets of ibuprofen (200 mg OTC tablets) with 2 tablets of Tylenol (325 or 500 mg OTC tablets) every 4 hours for fever control. Start taking the antibiotics tomorrow. maintenance mechanic supervisor your prescription and begin taking this on Tuesday for a total of 10 days. Keep a log of your blood pressure to ensure that your blood pressure does improve when you are not sick. Return for any new or worsening symptoms Prescriptions: Amoxicillin 500 mg PO BID #16 capsule Is patient prescribed a controlled substance at d/c from ED?: No Referrals: None,Stated [Primary Care Provider] - 1-2 days Time of Disposition: 10:01
[2023-08-07] MEDS: AMOXICILLIN 500 MG CAP PO STA ×2 (09:44→10:12)
[2023-08-07] MEDS: AMOXICILLIN 500MG STARTER PACK 3 CAP BTL PO STA (10:12)
[2023-08-07 10:55] VITALS: BP 157/116; PULSE 98; RESP 14; TEMP 98.5
== END 2023-08-07 10:15 | disposition home or self-care (01) ==
LOC: EC 08:01 → SUPCPDRO 08:01 → EC 10:31
DX: J02.0 Streptococcal pharyngitis (principal); B95.0 Streptococcus, group A, as the cause of diseases classified elsewhere; R00.2 Palpitations; H92.02 Otalgia, left ear; H92.01 Otalgia, right ear
CPT/HCPCS: 87636; 87651; 99283